=== PATIENT | female | born 1970 | race African-American/Black ===

== ENCOUNTER 2016-06-21 05:49 | Day surgery (SDC) | payer OTHER ==
[~2016-06-21] VITALS: Ht 165.1 cm; Wt 77.7 kg
[~2016-06-21 05:49] MED LIST: ALBU8.5H IH; HYDR2 PO; IPRNEB IH; MECL-111 PO; MOME13HF2 IH; OMEP20 PO; TRAZ-144 PO; VITAD50000 PO
[2016-06-21] MEDS ORDERED: SODIUM CHLORIDE 0.9% 1,000 ML IV ONE (07:00)
[2016-06-21] MEDS ORDERED: MethylPREDNISolone SOD SUCC 125 MG/2 ML VIAL IVP ONE (08:15)
[2016-06-21] MEDS ORDERED: LIDOCAINE HCL 4% 50 ML SOLUTION TP ONE (17:41)
[2016-06-21] MEDS ORDERED: ALBUTEROL SULFATE 2.5 MG/0.5 ML NEB SOLUTION NEB ONE (17:41)
[2016-06-21] MEDS ORDERED: BENZOCAINE 20% 50 MCG/SPRAY 57 GM TP ONE (17:41)
[2016-06-21] MEDS ORDERED: LIDOCAINE HCL 2% 30 ML JELLY TP ONE (17:41)
[2016-06-21] MEDS ORDERED: OXYGEN THERAPY IH SCH (20:00)
[2016-06-22] MEDS ORDERED: SODIUM CHLORIDE 0.9% 1,000 ML IV ONE (08:55)
[2016-06-22] MEDS ORDERED: MIDAZOLAM HCL 2 MG/2 ML VIAL ONE (08:56)
[2016-06-22] MEDS ORDERED: FentaNYL CITRATE-PF 100 MCG/2 ML VIAL ONE (08:56)
[2016-06-22] MEDS ORDERED: MethylPREDNISolone SOD SUCC 125 MG/2 ML VIAL ONE (08:57)
== END 2016-06-21 09:55 | disposition home or self-care (01) ==
LOC: SURGERY 05:49
PROVIDERS: ATTEND Internal Medicine Critical Care Medicine
DX: J38.4 Edema of larynx (principal); B37.0 Candidal stomatitis; I10 Essential (primary) hypertension; J45.909 Unspecified asthma, uncomplicated
CPT/HCPCS: 31623; 31624; 87015; 87070; 87101; 87147; 87205; 87220; 88108; 88312; J2250; J2930; J3010; J7030